=== PATIENT | male | born 1975 | race Two or more races ===

== ENCOUNTER 2017-05-15 11:33 | Emergency (ER) | payer MEDICAID ==
[~2017-05-15] VITALS: Ht 167.6 cm; Wt 77.1 kg
[2017-05-15] MEDS ORDERED: guaiFENesin w/Codeine 5ml Liq ud ORAL STA (12:01)
[2017-05-15] MEDS ORDERED: Ipratropium 0.02% Inh Soln 2.5ml UD ONE (12:07)
[2017-05-15] MEDS ORDERED: Albuterol ud Inhalation ONE (12:07)
[2017-05-15 12:09] VITALS: BP 119/79
[2017-05-15] MEDS ORDERED: Ipratropium 0.02% Inh Soln 2.5ml UD HHN ONE (12:15)
[2017-05-15] MEDS ORDERED: Albuterol ud Inhalation HHN ONE (12:15)
[2017-05-15 13:00] VITALS: BP 141/96
--- NOTE | 2017-05-15 13:00 | Diagnostic Imaging Report ---
Indication: Cough Technique: One view of the chest Comparison: none Findings: There is mild elevation of left hemidiaphragm. There is right perihilar atelectasis. Lungs and pleural spaces are otherwise clear. The heart size is normal. Impression: Right perihilar atelectasis and elevated left hemidiaphragm No acute process otherwise
--- NOTE | 2017-05-15 14:21 | Emergency Room Report ---
History of Present Illness General Chief Complaint: Upper Respiratory Illness Source: Patient Present Illness HPI Patient presents with 3 days or URI. Cough with green phlegm and fever. Has heard himself wheezing. Some chest pain with cough 5/10, pleuritic, not present if not coughing, anterior chest. never with wheezing before. Some sore throat. No nasal congestion. No NVD, dysuria. Stool slightly loose, no blood or diarrhea. Smokes. No flu shot. Tylenol taken with some relief. Not document fever. No diabetes, HTN, prior COR problems. No calf pain, edema. Allergies: Coded Allergies: No Known Allergies (Unverified , 05/15/17) Patient History Past Medical History: see triage record Social History: Reports: smoking Social History Narrative refinishes furniture Reviewed Nursing Documentation: PMH: Agreed, PSxH: Agreed Nursing Documentation-PMH Past Medical History: No Stated History Review of Systems All Other Systems: negative except mentioned in HPI Physical Exam Vital Signs Date Time Temp Pulse Resp B/P (MAP) Pulse Ox O2 Delivery O2 Flow Rate FiO2 05/15/17 11:47 99.5 104 18 160/100 98 Room Air 99.5 Sp02 EP Interpretation: reviewed, normal General Appearance: well appearing, no apparent distress, GCS 15 Head: normocephalic, atraumatic Eyes: bilateral eye normal inspection, bilateral eye PERRL ENT: moist mucus membranes Neck: supple Respiratory: wheezing, expiration, other - min CWT Cardiovascular #1: regular rate, rhythm Cardiovascular #2: 2+ radial (R) Gastrointestinal: normal inspection, normal bowel sounds, non tender, no mass, non-distended Musculoskeletal: back normal, gait/station normal, normal range of motion, no calf tenderness Neurologic: alert, oriented x3, grossly normal Psychiatric: mood/affect normal Skin: normal inspection, warm/dry, other - stain on fingers Medical Decision Making Diagnostic Impression: Primary Impression: Bronchospasm Additional Impression: Upper respiratory infection Qualified Codes: J06.9 - Acute upper respiratory infection, unspecified ER Course Patient presents with URI and wheezing. DDx: bronchospasm, bronchitis, viral syndrome, flu amongst others. Patient with good O2 sat and CXR not indicated. Smoking only cardiac risk factor and pain not sound cardiac in nature. Patient will be treated with albuterol, atrovent and RobAC. We are past major flu season and this is slightly atypical presentation. Improved with treatment. Pain controlled and breathing well. Discussed treatment plan and discussed his stopping smoking. Patient stable for outpatient observation and treatment. Last Vital Signs Date Time Temp Pulse Resp B/P (MAP) Pulse Ox O2 Delivery O2 Flow Rate FiO2 05/15/17 14:46 92 17 132/88 100 Room Air 05/15/17 12:09 98.8 98.8 Status: improved Disposition: HOME, SELF-CARE Condition: Improved Scripts Acetaminophen (Tylenol) 325 Mg Tablet 650 MG ORAL Q6H Y for Prn Pain/Headache/Temp > 101, #20 TAB 0 Refills Prov: Yosvany Pringle M.D. 05/15/17 Albuterol Sulfate* (ALBUTEROL SULFATE MDI*) 8.5 Gm Hfa.aer.ad 2 PUFF INH Q6H, #1 EA 0 Refills Prov: Yosvany Pringle M.D. 05/15/17 Guaifenesin/Codeine Phos* (ROBITUSSIN AC*) 118 Ml Liquid 5 ML ORAL Q6H Y for For Cough, #90 ML 0 Refills Prov: Yosvany Pringle M.D. 05/15/17 Prednisone* (PREDNISONE*) 20 Mg Tablet 40 MG ORAL DAILY, #10 TAB Prov: Yosvany Pringle M.D. 05/15/17 Referrals: FLORI CHAMBERS,REFERRING (PCP) Yosvany Pringle M.D. May 15, 2017 14:20
[2017-05-15] MEDS ORDERED: TYLENOL325 MG ORAL (14:23)
[2017-05-15] MEDS ORDERED: ALBUTEROL SULF8.5 GM INH (14:23)
[2017-05-15] MEDS ORDERED: PREDNISONE20 MG ORAL (14:23)
[2017-05-15] MEDS ORDERED: GUAIFENESIN-CO118 M1 ORAL (14:23)
[2017-05-15 14:46] VITALS: BP 132/88
== END 2017-05-15 14:48 | disposition home or self-care (01) ==
LOC: EMR 12:13
DX: J98.01 Acute bronchospasm (principal); J06.9 Acute upper respiratory infection, unspecified; I10 Essential (primary) hypertension
CPT/HCPCS: 71045; 94640; 94664; 99284

== ENCOUNTER 2019-04-08 22:05 | Emergency (ER) | payer MEDICAID ==
[~2019-04-08] VITALS: Ht 162.6 cm; Wt 72.6 kg
[2019-04-08 22:44] VITALS: BP 142/102
--- NOTE | 2019-04-08 22:47 | NUR ---
ED Nurse Note: Patient walked in to ER c/o N/V earlier today. Stated was at [facility] today but decided to leave, and now came back to be checked up. AAO x4, VSS at this time.
--- NOTE | 2019-04-08 23:29 | Emergency Room Report ---
History of Present Illness General Chief Complaint: Vomiting Source: Patient Present Illness HPI This a 43-year-old male with no past medical history presents with chief complaint of nausea and vomiting. Onset this afternoon. He has some gassy abdominal pain and had a couple episode of vomiting. This occurred 1 hour prior to arrival this afternoon. He checked then but never responded when called. He said he fell asleep. After nurse checked on him again, he said that he still want to be seen. So he has to be re-triage. Right now his symptoms resolved. He denies any fever chills but denies any vomiting any longer. No diarrhea. No abdominal pain. Denies any alcohol abuse. Allergies: Coded Allergies: No Known Allergies (Unverified , 05/15/17) Patient History Past Medical History: see triage record, old chart reviewed Past Surgical History: none Pertinent Family History: none Social History: Denies: smoking Immunizations: other Reviewed Nursing Documentation: PMH: Agreed; PSxH: Agreed Nursing Documentation-PMH Past Medical History: No Stated History Review of Systems Eye: Denies: eye pain, blurred vision ENT: Denies: ear pain, nose congestion, throat swelling Respiratory: Denies: cough, shortness of breath Cardiovascular: Denies: chest pain, palpitations Gastrointestinal: Reports: abdominal pain, nausea, vomiting; Denies: diarrhea Musculoskeletal: Denies: back pain, joint pain Skin: Denies: rash Neurological: Denies: headache, numbness Endocrine: Denies: increased thirst, increased urine Hematologic/Lymphatic: Denies: easy bruising All Other Systems: negative except mentioned in HPI Physical Exam Vital Signs Date Time Temp Pulse Resp B/P (MAP) Pulse Ox O2 Delivery O2 Flow Rate FiO2 04/08/19 22:12 98.4 102 16 142/102 (115) 96 Room Air Vitals with high blood pressure Sp02 EP Interpretation: reviewed, normal General Appearance: well appearing, no apparent distress, alert Head: normocephalic, atraumatic Eyes: bilateral eye PERRL, bilateral eye EOMI ENT: hearing grossly normal, normal pharynx Neck: full range of motion, supple, no meningismus Respiratory: chest non-tender, lungs clear, normal breath sounds Cardiovascular #1: regular rate, rhythm, no murmur Gastrointestinal: non tender, no mass, no organomegaly, no bruit, non-distended , abnormal bowel sounds - Hyperactive, gassy bowel sounds Musculoskeletal: back normal, normal range of motion, gait/station normal Psychiatric: mood/affect normal Medical Decision Making Diagnostic Impression: Primary Impression: Vomiting Qualified Codes: R11.2 - Nausea with vomiting, unspecified ER Course Patient with abdominal pain with nausea and vomiting. Pain resolved now. May be something he ate, gastroenteritis, alcohol abuse to name a few. I see no evidence of acute abdomen or obstruction. Exam is otherwise benign. Last Vital Signs Date Time Temp Pulse Resp B/P (MAP) Pulse Ox O2 Delivery O2 Flow Rate FiO2 04/08/19 22:44 98.4 16 142/102 96 Room Air 04/08/19 22:44 102 Status: improved Disposition: HOME, SELF-CARE Condition: Stable Patient Instructions: Nausea and Vomiting, Adult Additional Instructions: Follow-up with your doctor in 7 days but return if symptoms worsen. Shubham Cano MD Apr 08, 2019 23:29
[2019-04-08 23:40] VITALS: BP 142/102
--- NOTE | 2019-04-08 23:40 | NUR ---
ED Nurse Note: Pt cleared by health care Provider for discharge. DC instructions/prescription was given and explained to pt and verbalized understanding of teachings. All medical deviecs such as ID band removed. Pt is AAO x4, ambulatory and left with all personal belongings.
== END 2019-04-08 23:40 | disposition home or self-care (01) ==
LOC: EMR 22:29
DX: R11.2 Nausea with vomiting, unspecified (principal)
CPT/HCPCS: 99282

== ENCOUNTER → 2019-04-08 | Emergency (ER) | payer MEDICAID ==
[~2019-04-08] VITALS: Ht 162.6 cm; Wt 70.3 kg
[~2019-04-08] MED LIST: ALBUTEROL SULF8.5 GM INH; GUAIFENESIN-CO118 M1 ORAL; PREDNISONE20 MG ORAL; TYLENOL325 MG ORAL
[2019-04-08 15:59] VITALS: BP 153/102
--- NOTE | 2019-04-08 17:06 | NUR ---
PT CALLED IN FROM WAITING ROOM AND NOT PRESENT
--- NOTE | 2019-04-08 17:11 | Emergency Room Report ---
History of Present Illness General Chief Complaint: Nausea, Vomiting, and Diarrhea Source: Patient Present Illness HPI This patient left prior to evaluation by medical provider. Allergies: Coded Allergies: No Known Allergies (Unverified , 05/15/17) Nursing Documentation-[facility] Past Medical History: No Stated History Physical Exam Vital Signs Date Time Temp Pulse Resp B/P (MAP) Pulse Ox O2 Delivery O2 Flow Rate FiO2 04/08/19 15:59 97.9 101 15 153/102 (119) 93 Room Air Medical Decision Making PA Attestation Dr. Cervantes Is my supervising Physician whom patient management has been discussed with. ER Course This patient left prior to evaluation by medical provider. Last Vital Signs Date Time Temp Pulse Resp B/P (MAP) Pulse Ox O2 Delivery O2 Flow Rate FiO2 04/08/19 15:59 97.9 101 15 153/102 (119) 93 Room Air Disposition: LEFT W/OUT BEING SEEN Condition: Unknown Chandni Hussein Apr 08, 2019 17:11
== END | disposition left against medical advice (07) ==
LOC: EMR 17:05
DX: Z53.21 Procedure and treatment not carried out due to patient leaving prior to being seen by health care provider (principal)